=== PATIENT | female | born 1970 | race Caucasian/White ===

== ENCOUNTER 2025-01-26 13:59 | Outpatient (REF) | payer OTHER, SELFPAY ==
--- NOTE | ~2025-01-26 | XR_ITS ---
EXAMINATION: XR HIP 2 OR MORE VIEWS RIGHT HISTORY: R leg pain extending from R groin/buttock to R foot COMPARISON: There are no prior studies available for comparison. FINDINGS: Two views of the right hip are submitted. Osseous mineralization is normal. There is no fracture or dislocation. There is mild to moderate osteoarthritis with joint space narrowing, osteophyte formation, and subchondral cyst formation. The soft tissues are unremarkable. XR/XR hip RT min 2V IMPRESSION: Mild to moderate osteoarthritis. Electronically signed by: Shad Iniguez MD 01/26/2025 02:48 PM EDT
--- NOTE | ~2025-01-26 | XR_ITS ---
EXAMINATION: XR LUMBAR SPINE 2-3 VIEWS HISTORY: R leg pain extending from R groin/buttock to R foot COMPARISON: There are no prior studies for comparison. FINDINGS: AP, lateral, and coned down views of the lumbar spine are submitted. Osseous mineralization is normal. Five nonrib-bearing lumbar vertebral bodies are identified, maintaining normal height and alignment without evidence of fracture or spondylolisthesis. There are mild degenerative changes with anterior spurring. The intervertebral disc spaces are preserved. The posterior elements are intact. The visualized paraspinal soft tissues are unremarkable. XR/XR lumbar spine 2-3V IMPRESSION: Mild degenerative changes. Electronically signed by: Shad Iniguez MD 01/26/2025 02:49 PM EDT
--- OUTSIDE RECORDS SUMMARY | 2025-01-26 14:49 | XMS_ITS | Clinical Summary ---
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 Role Phone Unavailable Primary Care Provider Unavailabl e Social History Tobacco Use Types Packs/Day Years Used Date Smoking Tobacco: Never Assessed Comments Unknown Sex and Gender Information Value Date Recorded Sex Assigned at Not on file Legal Sex Female 9:02 PM EST Gender Identity Not on file Sexual Orientation Not on file Plan of Treatment Health Maintenance Due Date Last Done Comments Breast Cancer Screening 1970 DTaP,Tdap,and Td Vaccines (1 - Tdap) 02/28/1987 Hepatitis B Vaccines (1 of 3 - 19+ 3-dose series) 02/28/1987 Cervical Cancer Screening: P ap Smear 02/28/1989 Pneumococcal Vaccine: 50+ Ye ars (1 of 1 - PCV) 02/28/2018 Zoster Vaccines (1 of 2) 02/28/2018 Colorectal Cancer Screening: Colonoscopy 07/10/2023 HIV Screening 07/10/2023 Hepatitis C Screening 07/10/2023 Social Influencers of Health Screening 07/10/2023 COVID-19 Vaccine (1 - 2023-2 5 season) 2024 Depression Screening 06/15/2024 Influenza Vaccine (#1) 2025 HIB Vaccines Aged Out No longer eligi ble based on patient's age to complete this topic HPV Vaccines Aged Out No longer eligi ble based on patient's age to complete this topic Hepatitis A Vaccines Aged Out No long er eligible based on patient's age to complete this topic IPV Vaccines Aged Out No longer eligi ble based on patient's age to complete this topic MMR Vaccines Aged Out No longer eligi ble based on patient's age to complete this topic Meningococcal ACWY Vaccine Aged Out N o longer eligible based on patient's age to complete this topic Meningococcal B Vaccine Aged Out No l onger eligible based on patient's age to complete this topic RSV Immunization Patients Un deandre 20 months Aged Out No longer eligible b ased on patient's age to complete this topic Varicella Vaccines Aged Out No longer eligible based on patient's age to complete this topic
== END 2025-01-26 14:00 | disposition home or self-care (01) ==
LOC: HO.HHCX 13:59
PROVIDERS: PCP Family Medicine; Visit Provider Family Medicine
DX: M79.604 Pain in right leg (principal); N39.0 Urinary tract infection, site not specified
CPT/HCPCS: 72100; 73502; 87086

== ENCOUNTER → 2025-01-26 14:18 | Outpatient (BNV) | payer SELFPAY | PROVIDERS: PCP Family Medicine; Visit Provider Radiology Diagnostic Radiology | DX: M16.11 Unilateral primary osteoarthritis, right hip (principal); M51.360 Other intervertebral disc degeneration, lumbar region with discogenic back pain only | CPT/HCPCS: 72100; 73502 ==